=== PATIENT | male | born 1965 | race African-American/Black ===

== ENCOUNTER 2021-08-04 13:08 | Inpatient (IN) | payer OTHER ==
[2021-08-04] MEDS ORDERED: chlordiazePOXIDE HCL 25 MG CAPSULE PO PRN (14:34)
[2021-08-04] MEDS ORDERED: METHOCARBAMOL 500 MG TABLET PO PRN (14:34)
[2021-08-04] MEDS ORDERED: ACETAMINOPHEN 325 MG TABLET (FP) PO PRN ×2 (14:34)
[2021-08-04] MEDS ORDERED: MAGNESIUM HYDROX 2400MG/30ML ORAL SUSPENSION 30 ML CUP PO PRN (14:34)
[2021-08-04] MEDS ORDERED: MENTHOL/PHENOL 1 EACH UD MM PRN (14:34)
[2021-08-04] MEDS ORDERED: IBUPROFEN 400 MG TABLET (FP) PO PRN (14:34)
[2021-08-04] MEDS ORDERED: LOPERAMIDE HCL 2 MG CAPSULE PO PRN (14:34)
[2021-08-04] MEDS ORDERED: BISMUTH SUBSALICYLATE 524 MG/30 ML PO PRN (14:34)
[2021-08-04] MEDS ORDERED: MAGNESIUM CITRATE 300 ML BOTTLE PO PRN (14:34)
[2021-08-04] MEDS ORDERED: MAG HYDROX/AL HYDROX/SIMETH 30 ML UNIT-DOSE CUP PO PRN (14:34)
[2021-08-04] MEDS ORDERED: ONDANSETRON *ODT* 4 MG TABLET SL PRN (14:34)
[2021-08-04 14:53] VITALS: BMI 26.5
[2021-08-04 17:09] LABS: ALBUMIN 3.8 g/dl (3.4-5.0); CALCIUM 9.3 mg/dL (8.5-10.1)
[2021-08-04 17:10] LABS: BLOOD UREA NITROGEN 10.8 mg/dL (7-18)
[2021-08-04 17:13] LABS: CREATININE 0.9 mg/dL (0.55-1.3)
[2021-08-04 17:14] LABS: BILIRUBIN,TOTAL 0.5 mg/dL (0.2-1); TOT PROT 7.7 g/dl (6.4-8.2)
[2021-08-04 17:23] LABS: HEMATOCRIT 41.3 % (35.4-49); HEMOGLOBIN 14.5 GM/dL (11.7-16.9); MCHC 35.2 g/dl (32.0-35.9); MEAN CELL VOLUME 88.1 fl (80-96); MEAN PLT VOLUME 8.1 fl (7.5-11.1); PLATELET COUNT 241 10^3/uL (134-434); RBC 4.68 M/mm3 (4.00-5.60); RDW 14.3 % (11.9-15.9); WHITE BLOOD COUNT 7.4 K/mm3 (4.0-10.0)
[2021-08-04] MEDS: chlordiazePOXIDE HCL 25 MG CAPSULE PO SCH ×2 (19:00→23:14)
[2021-08-04] MEDS: NICOTINE 14 MG/24 HOURS TOPICAL PATCH TD SCH (19:53)
[2021-08-04] MEDS: hydrOXYzine PAMOATE 25 MG CAPSULE (FP) PO SCH ×2 (19:54→23:14)
[2021-08-04] MEDS: PRENATAL VITAMINS W/ FOLIC ACID TABLET (FP) PO SCH (19:54)
[2021-08-04] MEDS: MELATONIN 5 MG TABLETS PO SCH (23:14)
[2021-08-04] MEDS: THIAMINE HCL 100 MG TABLET (FP) PO SCH (23:14)
[2021-08-05] MEDS: hydrOXYzine PAMOATE 25 MG CAPSULE (FP) PO SCH ×4 (06:02→19:22)
[2021-08-05] MEDS: chlordiazePOXIDE HCL 25 MG CAPSULE PO SCH ×3 (06:02→19:22)
[2021-08-05] MEDS: NICOTINE 14 MG/24 HOURS TOPICAL PATCH TD SCH (10:28)
[2021-08-05] MEDS: PRENATAL VITAMINS W/ FOLIC ACID TABLET (FP) PO SCH (10:29)
[2021-08-05] MEDS: NICOTINE 10 MG CARTRIDGE (INHALER) IH PRN ×2 (10:32→20:27)
[2021-08-06] MEDS: THIAMINE HCL 100 MG TABLET (FP) PO SCH ×2 (00:08→23:25)
[2021-08-06] MEDS: chlordiazePOXIDE HCL 25 MG CAPSULE PO SCH ×5 (00:08→23:25)
[2021-08-06] MEDS: MELATONIN 5 MG TABLETS PO SCH ×2 (00:08→23:24)
[2021-08-06] MEDS: hydrOXYzine PAMOATE 25 MG CAPSULE (FP) PO SCH ×6 (00:08→23:25)
[2021-08-06] MEDS: PRENATAL VITAMINS W/ FOLIC ACID TABLET (FP) PO SCH (11:50)
[2021-08-06] MEDS: NICOTINE 14 MG/24 HOURS TOPICAL PATCH TD SCH (11:50)
[2021-08-06 14:07] LABS: SARS-CoV-2 NAA Not Detected (Not Detected)
[2021-08-06] MEDS: NICOTINE 10 MG CARTRIDGE (INHALER) IH PRN ×2 (15:31→19:42)
[2021-08-06 17:47] VITALS: BP 158/71; PULSE 94; TEMP 96.8
[2021-08-07] MEDS ORDERED: chlordiazePOXIDE HCL 10 MG CAPSULE PO PRN
[2021-08-07] MEDS: hydrOXYzine PAMOATE 25 MG CAPSULE (FP) PO SCH ×3 (08:26→14:11)
[2021-08-07] MEDS: chlordiazePOXIDE HCL 10 MG CAPSULE PO SCH ×2 (08:30→11:01)
[2021-08-07] MEDS: NICOTINE 14 MG/24 HOURS TOPICAL PATCH TD SCH (11:01)
[2021-08-07] MEDS: PRENATAL VITAMINS W/ FOLIC ACID TABLET (FP) PO SCH (11:01)
[2021-08-08] MEDS ORDERED: chlordiazePOXIDE HCL 10 MG CAPSULE PO SCH (05:00)
[2021-08-09] MEDS ORDERED: chlordiazePOXIDE HCL 10 MG CAPSULE PO ONE (05:00)
== END 2021-08-07 12:38 | disposition left against medical advice (07) | DRG 894 ==
LOC: YASAS 13:08 → Y6N 16:14
PROVIDERS: ADMIT Allergy & Immunology; ATTEND Allergy & Immunology
PROC: HZ2ZZZZ Detoxification Services for Substance Abuse Treatment (ICD-10-PCS; principal; 2021-08-04)
DX: F10.230 Alcohol dependence with withdrawal, uncomplicated (principal); F14.20 Cocaine dependence, uncomplicated; F17.210 Nicotine dependence, cigarettes, uncomplicated; F25.9 Schizoaffective disorder, unspecified
CPT/HCPCS: 36415; 80053; 85027; 86780; C9803; U0003; U0005

== ENCOUNTER 2021-12-30 15:24 | Inpatient (IN) | payer OTHER ==
[2021-12-30 16:12] VITALS: BMI 27.2
[2021-12-30] MEDS ORDERED: MAG HYDROX/AL HYDROX/SIMETH 30 ML UNIT-DOSE CUP PO PRN (19:00)
[2021-12-30] MEDS ORDERED: ACETAMINOPHEN 325 MG TABLET (FP) PO PRN ×2 (19:00)
[2021-12-30] MEDS ORDERED: DICYCLOMINE HCL 10 MG CAPSULE PO PRN (19:00)
[2021-12-30] MEDS ORDERED: ONDANSETRON *ODT* 4 MG TABLET SL PRN (19:00)
[2021-12-30] MEDS ORDERED: MAGNESIUM CITRATE 300 ML BOTTLE PO PRN (19:00)
[2021-12-30] MEDS ORDERED: METHOCARBAMOL 500 MG TABLET PO PRN (19:00)
[2021-12-30] MEDS ORDERED: chlordiazePOXIDE HCL 25 MG CAPSULE PO PRN (19:00)
[2021-12-30] MEDS ORDERED: MAGNESIUM HYDROX 2400MG/30ML ORAL SUSPENSION 30 ML CUP PO PRN (19:00)
[2021-12-30] MEDS ORDERED: BISMUTH SUBSALICYLATE 524 MG/30 ML PO PRN (19:00)
[2021-12-30] MEDS ORDERED: LOPERAMIDE HCL 2 MG CAPSULE PO PRN (19:00)
[2021-12-30] MEDS ORDERED: BENZOCAINE/MENTHOL (CHLORASEPTIC ) LOZENGE MM PRN (19:00)
[2021-12-30] MEDS: PRENATAL VITAMINS W/ FOLIC ACID TABLET (FP) PO SCH (20:18)
[2021-12-30] MEDS: IBUPROFEN 400 MG TABLET (FP) PO PRN (20:19)
[2021-12-30] MEDS: NICOTINE POLACRILEX 2 MG GUM BUC PRN (20:25)
[2021-12-30] MEDS: chlordiazePOXIDE HCL 25 MG CAPSULE PO SCH (22:01)
[2021-12-30] MEDS: THIAMINE HCL 100 MG TABLET (FP) PO SCH (22:01)
[2021-12-30] MEDS: MELATONIN 5 MG TABLETS PO SCH (22:01)
[2021-12-30] MEDS: hydrOXYzine PAMOATE 25 MG CAPSULE (FP) PO SCH (22:01)
[2021-12-30] MEDS: NICOTINE 10 MG CARTRIDGE (INHALER) IH PRN (22:02)
[2021-12-31] MEDS: chlordiazePOXIDE HCL 25 MG CAPSULE PO SCH ×4 (07:27→22:04)
[2021-12-31] MEDS: hydrOXYzine PAMOATE 25 MG CAPSULE (FP) PO SCH ×5 (07:28→22:04)
[2021-12-31] MEDS: NICOTINE POLACRILEX 2 MG GUM BUC PRN ×3 (09:32→22:06)
[2021-12-31] MEDS: PRENATAL VITAMINS W/ FOLIC ACID TABLET (FP) PO SCH (10:33)
[2021-12-31 12:06] LABS: HEMATOCRIT 41.4 % (35.4-49); HEMOGLOBIN 13.8 GM/dL (11.7-16.9); MCH 29.7 pg (25.7-33.7); MCHC 33.4 g/dl (32.0-35.9); MEAN PLT VOLUME 8.7 fl (7.5-11.1); PLATELET COUNT 229 10^3/uL (134-434); RBC 4.65 M/mm3 (4.00-5.60); RDW 14.2 % (11.9-15.9); WHITE BLOOD COUNT 7.2 K/mm3 (4.0-10.0)
[2021-12-31 12:17] LABS: ALBUMIN 3.4 g/dl (3.4-5.0); BLOOD UREA NITROGEN 20.8 mg/dL (7-18)
[2021-12-31 12:20] LABS: CREATININE 0.8 mg/dL (0.55-1.3)
[2021-12-31 12:21] LABS: BILIRUBIN,TOTAL 0.8 mg/dL (0.2-1)
[2021-12-31 13:04] LABS: HIV INTERPRETATION NEGATIVE (NEGATIVE)
[2021-12-31] MEDS: NICOTINE 10 MG CARTRIDGE (INHALER) IH PRN (22:01)
[2021-12-31] MEDS: MELATONIN 5 MG TABLETS PO SCH (22:04)
[2021-12-31] MEDS: THIAMINE HCL 100 MG TABLET (FP) PO SCH (22:04)
[2021-12-31] MEDS: QUEtiapine FUMARATE 50 MG TABLET PO SCH (22:04)
[2021-12-31] MEDS: IBUPROFEN 600 MG TABLET (FP) PO PRN (22:07)
[2022-01-01] MEDS: chlordiazePOXIDE HCL 25 MG CAPSULE PO SCH ×4 (07:07→22:37)
[2022-01-01] MEDS: hydrOXYzine PAMOATE 25 MG CAPSULE (FP) PO SCH ×5 (07:07→22:37)
[2022-01-01] MEDS: SERTRALINE HCL 50 MG TABLET (FP) PO SCH (10:40)
[2022-01-01] MEDS: NICOTINE POLACRILEX 2 MG GUM BUC PRN ×2 (10:41→15:15)
[2022-01-01] MEDS: PRENATAL VITAMINS W/ FOLIC ACID TABLET (FP) PO SCH (10:42)
[2022-01-01] MEDS: NICOTINE 10 MG CARTRIDGE (INHALER) IH PRN (20:08)
[2022-01-01] MEDS: MELATONIN 5 MG TABLETS PO SCH (22:37)
[2022-01-01] MEDS: QUEtiapine FUMARATE 50 MG TABLET PO SCH (22:37)
[2022-01-01] MEDS: THIAMINE HCL 100 MG TABLET (FP) PO SCH (22:38)
[2022-01-01] MEDS: IBUPROFEN 600 MG TABLET (FP) PO PRN (22:41)
[2022-01-02] MEDS ORDERED: chlordiazePOXIDE HCL 10 MG CAPSULE PO PRN
[2022-01-02] MEDS: chlordiazePOXIDE HCL 10 MG CAPSULE PO SCH ×4 (06:02→22:31)
[2022-01-02] MEDS: hydrOXYzine PAMOATE 25 MG CAPSULE (FP) PO SCH ×5 (06:03→22:30)
[2022-01-02] MEDS: NICOTINE POLACRILEX 2 MG GUM BUC PRN ×5 (06:03→22:32)
[2022-01-02] MEDS: SERTRALINE HCL 50 MG TABLET (FP) PO SCH (10:30)
[2022-01-02] MEDS: PRENATAL VITAMINS W/ FOLIC ACID TABLET (FP) PO SCH (10:31)
[2022-01-02] MEDS: NICOTINE 10 MG CARTRIDGE (INHALER) IH PRN ×4 (11:15→22:32)
[2022-01-02] MEDS: MELATONIN 5 MG TABLETS PO SCH (22:30)
[2022-01-02] MEDS: ATORVASTATIN CA 20 MG TABLET (FP) PO SCH (22:30)
[2022-01-02] MEDS: QUEtiapine FUMARATE 50 MG TABLET PO SCH (22:30)
[2022-01-02] MEDS: THIAMINE HCL 100 MG TABLET (FP) PO SCH (22:30)
[2022-01-02] MEDS: IBUPROFEN 600 MG TABLET (FP) PO PRN (22:34)
[2022-01-03] MEDS: chlordiazePOXIDE HCL 10 MG CAPSULE PO SCH ×2 (07:23→17:48)
[2022-01-03] MEDS: hydrOXYzine PAMOATE 25 MG CAPSULE (FP) PO SCH ×5 (07:24→22:32)
[2022-01-03] MEDS: NICOTINE 10 MG CARTRIDGE (INHALER) IH PRN ×3 (11:29→20:19)
[2022-01-03] MEDS: NICOTINE POLACRILEX 2 MG GUM BUC PRN ×3 (11:30→20:20)
[2022-01-03] MEDS: PRENATAL VITAMINS W/ FOLIC ACID TABLET (FP) PO SCH (11:58)
[2022-01-03] MEDS: SERTRALINE HCL 50 MG TABLET (FP) PO SCH (12:00)
[2022-01-03] MEDS: MELATONIN 5 MG TABLETS PO SCH (22:31)
[2022-01-03] MEDS: QUEtiapine FUMARATE 50 MG TABLET PO SCH (22:32)
[2022-01-03] MEDS: ATORVASTATIN CA 20 MG TABLET (FP) PO SCH (22:32)
[2022-01-03] MEDS: THIAMINE HCL 100 MG TABLET (FP) PO SCH (22:32)
[2022-01-04] MEDS ORDERED: chlordiazePOXIDE HCL 10 MG CAPSULE PO ONE (05:00)
[2022-01-04] MEDS: hydrOXYzine PAMOATE 25 MG CAPSULE (FP) PO SCH ×2 (05:37→10:10)
[2022-01-04] MEDS: NICOTINE POLACRILEX 2 MG GUM BUC PRN ×6 (08:34→21:29)
[2022-01-04] MEDS: NICOTINE 10 MG CARTRIDGE (INHALER) IH PRN ×4 (08:38→21:31)
[2022-01-04] MEDS: SERTRALINE HCL 50 MG TABLET (FP) PO SCH (10:10)
[2022-01-04] MEDS: PRENATAL VITAMINS W/ FOLIC ACID TABLET (FP) PO SCH (10:10)
[2022-01-04] MEDS: IBUPROFEN 400 MG TABLET (FP) PO PRN ×2 (10:11→21:31)
[2022-01-04 12:04] VITALS: RESP 18
[2022-01-04] MEDS ORDERED: hydrOXYzine PAMOATE 25 MG CAPSULE (FP) PO PRN (12:35)
[2022-01-04] MEDS: LIDOCAINE 5% TOPICAL PATCH TP SCH (15:20)
[2022-01-04] MEDS: THIAMINE HCL 100 MG TABLET (FP) PO SCH (21:29)
[2022-01-04] MEDS: QUEtiapine FUMARATE 50 MG TABLET PO SCH (21:30)
[2022-01-04] MEDS: MELATONIN 5 MG TABLETS PO SCH (21:32)
[2022-01-04] MEDS: LIDOCAINE PATCH REMOVAL MC SCH (21:32)
[2022-01-04] MEDS: ATORVASTATIN CA 20 MG TABLET (FP) PO SCH (21:32)
[2022-01-05] MEDS: NICOTINE 10 MG CARTRIDGE (INHALER) IH PRN ×4 (06:57→19:17)
[2022-01-05] MEDS: NICOTINE POLACRILEX 2 MG GUM BUC PRN ×5 (06:58→21:57)
[2022-01-05 07:10] VITALS: BP 105/73; PULSE 85; TEMP 96.9
[2022-01-05] MEDS: LIDOCAINE 5% TOPICAL PATCH TP SCH (09:54)
[2022-01-05] MEDS: SERTRALINE HCL 50 MG TABLET (FP) PO SCH (09:55)
[2022-01-05] MEDS: IBUPROFEN 600 MG TABLET (FP) PO PRN ×2 (09:55→21:56)
[2022-01-05] MEDS: PRENATAL VITAMINS W/ FOLIC ACID TABLET (FP) PO SCH (09:55)
[2022-01-05] MEDS: THIAMINE HCL 100 MG TABLET (FP) PO SCH (21:55)
[2022-01-05] MEDS: LIDOCAINE PATCH REMOVAL MC SCH (21:56)
[2022-01-05] MEDS: MELATONIN 5 MG TABLETS PO SCH (21:56)
[2022-01-05] MEDS: ATORVASTATIN CA 20 MG TABLET (FP) PO SCH (21:56)
[2022-01-05] MEDS ORDERED: QUEtiapine FUMARATE 100 MG TABLET (FP) PO SCH (22:00)
[2022-01-06] MEDS: NICOTINE POLACRILEX 2 MG GUM BUC PRN ×4 (07:10→15:45)
[2022-01-06] MEDS: NICOTINE 10 MG CARTRIDGE (INHALER) IH PRN ×3 (07:11→17:25)
[2022-01-06] MEDS: SERTRALINE HCL 50 MG TABLET (FP) PO SCH (10:06)
[2022-01-06] MEDS: IBUPROFEN 400 MG TABLET (FP) PO PRN (10:07)
[2022-01-06] MEDS: PRENATAL VITAMINS W/ FOLIC ACID TABLET (FP) PO SCH (10:07)
[2022-01-06] MEDS: LIDOCAINE 5% TOPICAL PATCH TP SCH (10:08)
[2022-01-06] MEDS ORDERED: BACITRACIN 0.9 GM PACKET TP SCH (22:00)
== END 2022-01-06 19:40 | disposition left against medical advice (07) | DRG 894 ==
LOC: YASAS 15:24 → Y3N 19:39 → Y3E 01-04 11:14
PROVIDERS: ADMIT Allergy & Immunology; ATTEND Psychiatry & Neurology Pain Medicine
PROC: HZ2ZZZZ Detoxification Services for Substance Abuse Treatment (ICD-10-PCS; 2021-12-30)
PROC: HZ42ZZZ Group Counseling for Substance Abuse Treatment, Cognitive-Behavioral (ICD-10-PCS; principal; 2022-01-04)
DX: F10.20 Alcohol dependence, uncomplicated (principal); F14.20 Cocaine dependence, uncomplicated; F17.210 Nicotine dependence, cigarettes, uncomplicated; F25.9 Schizoaffective disorder, unspecified; F41.9 Anxiety disorder, unspecified; F32.A Depression, unspecified; E78.5 Hyperlipidemia, unspecified; K21.9 Gastro-esophageal reflux disease without esophagitis; G47.00 Insomnia, unspecified; S70.311A Abrasion, right thigh, initial encounter; X08.8XXA Exposure to other specified smoke, fire and flames, initial encounter; Y92.9 Unspecified place or not applicable; Z28.310 Unvaccinated for COVID-19; Z88.8 Allergy status to other drugs, medicaments and biological substances; Z91.013 Allergy to seafood
CPT/HCPCS: 36415; 80053; 85027; 86780; 87389; 87811; 93005; 93010; C9803-CS; U0003; U0005